=== PATIENT | male | born 1960 | race Hispanic/Latino ===

== ENCOUNTER 2017-01-04 19:18 | Inpatient (IN) | payer MEDICARE ==
[2017-01-04 19:19] VITALS: BMI 19.6
--- NOTE | 2017-01-04 20:56 | ED PDOC ---
HPI: Psych/Substance Abuse Time Seen by Provider: 01/04/17 19:43 Chief Complaint (Nursing): Psychiatric Evaluation Chief Complaint (Provider): Aggressive Behavior History Per: EMS, Other (Half-Way Report) History/Exam Limitations: clinical condition (hx of CVA, oriented x0) Additional Complaint(s): Frank Wilson is a 56 year old male, with a past medical history inclusive of CAD (s/p coronary stent placement) HTN, hypercholesterolemia, hyperlipidemia , COPD, type II diabetes and a recently diagnosed CVA, who presents to the ED on 01/04/17, via EMS and as per the direction of the [facility], for the evaluation of aggressive behavior. HPI and ROS are limited secondary to patient's clinical condition (oriented x0 but awake/alert/able to follow commands). PMD: William Heller Past Medical History Reviewed: Historical Data, Nursing Documentation, Vital Signs Vital Signs: Last Vital Signs Temp 98.2 F 01/04/17 19:23 Pulse 89 01/04/17 19:23 Resp 18 01/04/17 19:23 BP 153/93 H 01/04/17 19:23 Pulse Ox 99 01/04/17 19:23 - Medical History PMH: Anxiety, CAD, COPD, CVA, Depression, HTN, Hypercholesterolemia, TIA Denies: Alzheimer's Disease, Anemia, Arthritis, Asthma, Bipolar Disorder, Bronchitis, Cardia Arrhythmia, CHF, Crohn's Disease, Dementia, Diabetes, Diverticulitis, Emphysema, Fibromyalgia, Fractures, Gastrointestinal Ulcer, Gall Bladder Disease, Hepatitis, HIV, Hyperthyroidism, Hypothyroidism, Kidney Stones, Migraine, Mitral Valve Prolapse, Osteoporosis, Pancreatitis, Paranoia, Parkinson's Disease, Peripheral Edema, Personality Disorder, Pneumonia, Post Traumatic Stress Disorder, Chronic Kidney Disease, Rheumatoid Arthritis, Schizophrenia, Seizures, Sickle Cell Disease, Sexually Transmitted Disease, Sleep Apnea - Surgical History Surgical History: Coronary Stent Denies: Appendectomy, Cholecystectomy, Pacemaker - Family History Family History: States: Unknown Family Hx - Living Arrangements Living Arrangements: Half-Way/Assist [facility] - Immunization History Hx Tetanus Toxoid Vaccination: No Hx Influenza Vaccination: No Hx Pneumococcal Vaccination: No - Home Medications Home Medications: Ambulatory Orders Medication Instructions Recorded Insulin Detemir [Levemir] 5 unit SC 12/26/16 Insulin Human Regular [Novolin R] See Protocol SC ACHS 12/26/16 Acetaminophen [Tylenol 325mg tab] 650 mg PO Q6 PRN 01/05/17 Acetaminophen [Tylenol 325mg tab] 650 mg PO Q6 PRN 01/05/17 Aluminum Hydroxide/Magnesium H 30 ml PO Q4 PRN 01/05/17 [Maalox 30 ml] Folic Acid [Folic Acid] 1 mg PO DAILY 01/05/17 GlipiZIDE [Glucotrol] 10 mg PO DAILY 01/05/17 LORazepam [Ativan] 1 mg PO Q6 PRN 01/05/17 LORazepam [Ativan] 1 mg PO Q8 PRN 01/05/17 Lisinopril [Zestril] 20 mg PO DAILY 01/05/17 Magnesium Hydroxide [Milk Of 30 ml PO HS PRN 01/05/17 Magnesia] Metoprolol Tartrate [Lopressor] 25 mg PO DAILY 01/05/17 Pantoprazole Sodium [Protonix] 40 mg PO DAILY 01/05/17 Polyethylene Glycol 3350 [Glycolax] 17 gm PO DAILY PRN 01/05/17 QUEtiapine [SEROquel] 50 mg PO BID 01/05/17 SITagliptin [Januvia] 100 mg PO DAILY 01/05/17 Thiamine [Vitamin B1 Tab] 100 mg PO DAILY 01/05/17 - Allergies Allergies/Adverse Reactions: Allergies Allergy/AdvReac Type Severity Reaction Status Date / Time No Known Allergies Allergy Verified 03/23/16 14:21 Review of Systems Review Of Systems: ROS cannot be obtained secondary to pt's inabilty to answer questions. Psych: Positive for: Other (aggressive behavior) Physical Exam - Reviewed Nursing Documentation Reviewed: Yes Vital Signs Reviewed: Yes - Physical Exam Appears: Positive for: Non-toxic, No Acute Distress Head Exam: Positive for: ATRAUMATIC, NORMOCEPHALIC Skin: Positive for: Normal Color, Warm, Dry Cardiovascular/Chest: Positive for: Regular Rate, Rhythm. Negative for: Murmur Respiratory: Positive for: Normal Breath Sounds. Negative for: Respiratory Distress Gastrointestinal/Abdominal: Positive for: Normal Exam, Soft. Negative for: Tenderness Extremity: Positive for: Normal ROM (moving all extremities) Neurologic/Psych: Positive for: Alert (awake/alert). Negative for: Oriented (x0 ) - Laboratory Results Result Diagrams: 01/04/17 22:55 01/04/17 22:55 - ECG Interpretation Of ECG: NSR @ 85, TWI inferiolaterally (old compared to 03/23/16). O2 Sat by Pulse Oximetry: 99 (RA) Pulse Ox Interpretation: Normal Medical Decision Making Medical Decision Makin:43 Initial Impression: patient is medically clear for crisis evaluation Initial Plan: * Crisis Evaluation Scribe Attestation: Documented by Dorothea Eden, acting as a scribe for Michell Guevara MD. Provider Scribe Attestation: All medical record entries made by the Scribe were at my direction and personally dictated by me. I have reviewed the chart and agree that the record accurately reflects my personal performance of the history, physical exam, medical decision making, and the department course for this patient. I have also personally directed, reviewed, and agree with the discharge instructions and disposition. ED OBSERVATION Time of observation admission: 20:00 - Observation admission statement Patient is being placed in observation because:: Crisis evaluation Disposition - Clinical Impression Clinical Impression: Adjustment disorder - Patient ED Disposition Is Patient to be Admitted: Transfer of Care - Disposition Disposition Time: 00:00 Condition: STABLE Patient Signed Over To: Nikolai Weaver Handoff Comments: Pending Crisis evaluation.
[2017-01-04] MEDS ORDERED: Sodium Chloride 0.9% 1,000 ML IV STA (22:53)
[2017-01-04 23:46] LABS: BASO % 0.4 % (0.0-2.0); EOS # 0.2 K/uL (0.0-0.7); EOS % 2.2 % (0.0-4.0); LYMPH # 1.3 K/uL (1.0-4.3); LYMPH % 18.4 % (20.0-40.0); MEAN CELL VOLUME 90.1 fl (80.0-94.0); MEAN CORPUSCULAR HEMOGLOBIN 30.9 pg (27.0-31.0); MEAN CORPUSCULAR HGB CONC 34.3 g/dL (33.0-37.0); MEAN PLATELET VOLUME 9.4 fl (7.2-11.7); MONO # 0.7 K/uL (0.0-0.8); MONO % 9.3 % (0.0-10.0); NEUT # 5.1 K/uL (1.8-7.0); NEUT % 69.7 % (50.0-75.0); NRBC % 0.2 % (0.0-0.0); RED CELL DISTRIBUTION WIDTH 13.1 % (11.5-14.5); WHITE BLOOD COUNT 7.3 K/uL (4.8-10.8)
[2017-01-04 23:57] LABS: RBC URINE 2 /hpf (0-3); URINE BACTERIA RARE (<OCC); URINE BILIRUBIN NEGATIVE (NEGATIVE); URINE BLOOD NEGATIVE (NEGATIVE); URINE COLOR STRAW (YELLOW); URINE GLUCOSE (UA) >=500 mg/dL (Normal); URINE KETONE NEGATIVE (NEGATIVE); URINE LEUKOCYTE ESTERASE NEG Leu/uL (Negative); URINE PROTEIN NEGATIVE (NEGATIVE); URINE UROBILINOGEN 0.2-1.0 mg/dL (0.2-1.0); WBC URINE 1 /hpf (0-5)
[2017-01-05 00:01] LABS: ALKALINE PHOSPHATASE 67 U/L (38-126); ALT/SGPT 27 U/L (21-72); AST/SGOT 26 U/L (17-59); BILIRUBIN,TOTAL 0.4 mg/dl (0.2-1.3); BLOOD UREA NITROGEN 26 mg/dl (9-20); CALCIUM 9.6 mg/dL (8.4-10.2); CARBON DIOXIDE 26 mmol/L (22-30); CHLORIDE 99 mmol/L (98-107); GFR AFRICAN-AMERICAN > 60; GLUCOSE,RANDOM 259 mg/dL (75-110); POTASSIUM 4.2 MMOL/L (3.6-5.0); SODIUM 140 mmol/l (132-148); TOTAL PROTEIN 6.9 G/DL (6.3-8.2)
--- NOTE | 2017-01-05 00:12 | ED PDOC ---
- Laboratory Results Result Diagrams: 01/04/17 22:55 01/04/17 22:55 - ECG O2 Sat by Pulse Oximetry: 99 (RA) Medical Decision Making Medical Decision Making: Case endorsed from Dr. Guevara at 0000 pending crisis eval. 0010: Patient was evaluated by crisis and will be admitted to [facility] for adjustment disorder under Dr. Thomas. Scribe Attestation: Documented by Margarita Carlisle acting as a scribe for Nikolai Weaver MD. Provider Scribe Attestation: All medical record entries made by the Scribe were at my direction and personally dictated by me. I have reviewed the chart and agree that the record accurately reflects my personal performance of the history, physical exam, medical decision making, and the department course for this patient. I have also personally directed, reviewed, and agree with the discharge instructions and disposition. Disposition - Clinical Impression Clinical Impression: Adjustment disorder - POA Present On Arrival: None - Disposition Disposition: Admitted as In-Patient Disposition Time: 00:10 Progress Note - Review of Symptoms Events since last encounter: Pt. is medically cleared.
[2017-01-05] MEDS ORDERED: Magnesium Hydroxide Susp 30 ml UD PO PRN ×2 (01:55→01:59)
[2017-01-05] MEDS ORDERED: Alum-Mag Hydrox-Simethicone Susp (30 mL) PO PRN (01:59)
[2017-01-05] MEDS ORDERED: Bismuth Subsalicylate 262 mg/15 ml Sus (240 ml) PO PRN (01:59)
[2017-01-05] MEDS ORDERED: Insulin Regular 100 units/ml SC SCH (07:30)
[2017-01-05 07:31] LABS: IRON 74 ug/dL (49-181); T4 5.14 ug/dl (5.5-11.0)
[2017-01-05 07:45] LABS: THYROID STIMULATING HORMONE 0.57 mIU/ML (0.46-4.68)
--- NOTE | 2017-01-05 08:11 | RAD ---
HISTORY: r/o PNA COMPARISON: No prior. FINDINGS: LUNGS: No active pulmonary disease. PLEURA: No significant pleural effusion identified, no pneumothorax apparent. CARDIOVASCULAR: Normal. OSSEOUS STRUCTURES: No significant abnormalities. VISUALIZED UPPER ABDOMEN: Normal. OTHER FINDINGS: None. IMPRESSION: No active disease.
[2017-01-05] MEDS: Pantoprazole 40 mg EC Tab PO SCH (08:18)
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
[2017-01-05] MEDS ORDERED: DiphenhydrAMINE 50 mg/ml Inj IM PRN (08:38)
[2017-01-05] MEDS ORDERED: POLYETHYLENE GLYCOL 3350 17 GM/Dose PACKET PO PRN (09:00)
[2017-01-05] MEDS ORDERED: Divalproex 250 mg DR(BID formulation) PO SCH (09:00)
[2017-01-05] MEDS: Divalproex 250 mg DR(BID formulation) PO SCH ×2 (10:28→16:38)
[2017-01-05] MEDS ORDERED: Influenza Vaccine(5yr & older) 0.5 ML/45 MCG IM ONE (11:06)
[2017-01-05] MEDS: Insulin Regular 100 units/ml SC SCH ×3 (12:11→22:17)
--- NOTE | 2017-01-05 15:03 | CP.PCM.CON ---
History of Present Illness - History of Present Illness History of Present Illness: Reason for consult per protocol HPI 56 yo male past medical history recent CVA with history of CVA, recent NSTEMI, CAD, DM2, HTN, and ETOH abuse was initially admitted at [facility] because of acute CVA with right sided weakness, AMS and aphasia. He was transferred to acute rehab on 12/26/16 to continue therapy and rehab. Pt was found to have large infarct on left cerebral hemisphere and left subdural hematoma on CT scan. Patient is positive for bilateral ICA stenosis. He was also diagnosed with NSTEMI while in [facility]. Pt had been agitated and was placed on one to one observation prevent injury. Psyche consult was called who recommended Seroquel on daily and prn basis. Upon completion of admission at acute rehabilitation he was accepted at [facility] where he would continue his rehab. Patient arrived to [facility] and was then transferred back to [place] emergency room for agitation and aggressive behavior. He was then readmitted to the psych floor for further observation and care. Review of systems per HPI all other systems reviewed and negative by me PMHx: recent CVA with history of CVA, recent and STEMI, CAD, DM2, HTN, and ETOH abuse PSHx: Cardiac Stent ALL: NKDA Medications: Please see Assessment and Plan below Social Hx: Lives alone, (+) Opiate Abuse, (+) Alcohol Abuse, (+) Tobacco Family Hx: none available Vital signs as documented. Temp Pulse Resp BP Pulse Ox 97.2 F L 78 20 150/88 100 01/05/17 05:31 01/05/17 08:19 01/05/17 05:31 01/05/17 08:19 01/05/17 01:26 Gen: WDWN, cooperative, alert HEENT: NCAT, PERRL, EOMI, no erythema, exudates, gross hearing intact, no lesions Neck: Soft, supple, no lymphadenopathy, no JVD Heart: +S1S2, RRR, No MRG Lung: CTAB, No WRR Abd: soft, NT, ND, BSx4, no HSM, no masses Ext: warm, well perfused, pedal pulses intact Neuro: AAOx3, Strength equal bilaterally UE/LE Skin: Warm, Dry, no rash Psych: Normal mood, affect with appropriate range 01/04/17 22:55 01/04/17 22:55 56 yo male past medical history recent CVA with history of CVA, recent NSTEMI, CAD, DM2, HTN, and ETOH abuse was initially admitted at [facility] because of acute CVA with right sided weakness, AMS and aphasia. He was transferred to acute rehab on 12/26/16 to continue therapy and rehab. Pt was found to have large infarct on left cerebral hemisphere and left subdural hematoma on CT scan. Patient is positive for bilateral ICA stenosis. He was also diagnosed with NSTEMI while in [facility]. Pt had been agitated and was placed on one to one observation prevent injury. Psyche consult was called who recommended Seroquel on daily and prn basis. Upon completion of admission at acute rehabilitation he was accepted at [facility] where he would continue his rehab. Patient arrived to [facility] and was then transferred back to [place] emergency room for agitation and aggressive behavior. He was then readmitted to the psych floor for further observation and care. (1) CVA (cerebral vascular accident) with Left Subdural Hematoma continue PT/OT and Speech therapy hold antiplatelet because of potential risk of bleeding (2) NSTEMI Metoprolol Tartrate 25 mg PO BID Atorvastatin 40 mg PO HS Lisinopril 20 mg PO daily no anticoagulation or anti-platelets because of subdural hematoma (3) DM type 2 (diabetes mellitus, type 2) BS uncontrolled Accuchecks ACHS Januvia 100 mg PO daily Glipizide SR 10mg PO daily Levemir 7 Unit SQ QHS (4) Hypertension BP stable continue Metoprolol, Amlodipine and Lisinopril (5) HLD (hyperlipidemia) continue Atorvastatin (6) Anxiety/Agitation continue 1:1 observation Seroquel 50mg PO q 8hrs prn for agitation Seroquel 50 mg PO BID (7) GERD (gastroesophageal reflux disease) Protonix 40 mg PO daily (8) Alcohol abuse Folic Acid 1 mg PO daily Thiamine 100 mg PO daily watch for alcohol withdrawal Past Patient History - Infectious Disease Hx of Infectious Diseases: None - Tetanus Immunizations Tetanus Immunization: Unknown - Past Social History Smoking Status: Heavy Smoker > 10 Cigarettes Daily - CARDIAC Hx Hypertension: Yes - PULMONARY Hx Chronic Obstructive Pulmonary Disease (COPD): Yes - NEUROLOGICAL Hx Seizures: Yes - HEENT Hx Difficulty Chewing: No - RENAL Hx Chronic Kidney Disease: No - ENDOCRINE/METABOLIC Hx Diabetes Mellitus Type 2: Yes - HEMATOLOGICAL/ONCOLOGICAL Hx Human Immunodeficiency Virus (HIV): No - INTEGUMENTARY Hx Dermatological Problems: No - MUSCULOSKELETAL/RHEUMATOLOGICAL Hx Falls: Yes - GASTROINTESTINAL Hx Gastroesophageal Reflux: Yes - GENITOURINARY/GYNECOLOGICAL Hx Genitourinary Disorders: No - PSYCHIATRIC Hx Depression: Yes Hx Substance Use: Yes - SURGICAL HISTORY Hx Coronary Stent: Yes - ANESTHESIA Hx Anesthesia: Yes Hx Anesthesia Reactions: No Hx Malignant Hyperthermia: No Meds Allergies/Adverse Reactions: Allergies Allergy/AdvReac Type Severity Reaction Status Date / Time No Known Allergies Allergy Verified 03/23/16 14:21 - Medications Medications: Current Medications Acetaminophen (Tylenol 325mg Tab) 650 mg PO Q4 PRN PRN Reason: Pain, moderate (4-7) Al Hydrox/Mg Hydrox/Simethicone (Maalox Plus 30 Ml) 30 ml PO Q4 PRN PRN Reason: Dyspepsia Amlodipine Besylate (Norvasc) 10 mg PO DAILY [facility] Last Admin: 01/05/17 08:17 Dose: 10 mg Atorvastatin Calcium (Lipitor) 40 mg PO HS [facility] Bismuth Subsalicylate (Pepto-Bismol) 524 mg PO Q4 PRN PRN Reason: Diarrhea Diphenhydramine HCl (Benadryl) 50 mg IM Q6 PRN PRN Reason: Agitation Diphenhydramine HCl (Benadryl) 50 mg PO Q6 PRN PRN Reason: Other Divalproex Sodium (Depakote Dr(*Bid*)) 250 mg PO BID [facility] Last Admin: 01/05/17 10:28 Dose: 250 mg Folic Acid (Folic Acid) 1 mg PO DAILY [facility] Last Admin: 01/05/17 08:13 Dose: 1 mg Glipizide (Glucotrol) 10 mg PO DAILY [facility] Last Admin: 01/05/17 08:14 Dose: 10 mg Haloperidol Lactate (Haldol) 2 mg IM Q6 PRN PRN Reason: Agitation Insulin Detemir (Levemir) 5 units SC HS [facility] Insulin Human Regular (Humulin R) 0 units SC ACHS [facility] Last Admin: 01/05/17 12:11 Dose: 4 u Lisinopril (Zestril) 20 mg PO DAILY [facility] Last Admin: 01/05/17 08:19 Dose: 20 mg Magnesium Hydroxide (Milk Of Magnesia) 30 ml PO HS PRN PRN Reason: Constipation Metoprolol Tartrate (Lopressor) 25 mg PO Q12 [facility] Last Admin: 01/05/17 08:17 Dose: 25 mg Pantoprazole Sodium (Protonix Ec Tab) 40 mg PO DAILY [facility] Last Admin: 01/05/17 08:18 Dose: 40 mg Polyethylene Glycol (Miralax) 17 gm PO DAILY PRN PRN Reason: constipation Quetiapine Fumarate (Seroquel) 50 mg PO DAILY [facility] Last Admin: 01/05/17 10:24 Dose: 50 mg Quetiapine Fumarate (Seroquel) 100 mg PO DAILY@1700 [facility] Quetiapine Fumarate (Seroquel) 50 mg PO Q8 PRN PRN Reason: Agitation Sitagliptin Phosphate (Januvia) 100 mg PO DAILY [facility] Last Admin: 01/05/17 08:16 Dose: 100 mg Thiamine HCl (Vitamin B1 Tab) 100 mg PO DAILY [facility] Last Admin: 01/05/17 08:19 Dose: 100 mg Results - Vital Signs Recent Vital Signs: Last Vital Signs Temp 97.2 F L 01/05/17 05:31 Pulse 78 01/05/17 08:19 Resp 20 01/05/17 05:31 BP 150/88 01/05/17 08:19 Pulse Ox 100 01/05/17 01:26 - Labs Result Diagrams: 01/04/17 22:55 01/04/17 22:55 Labs: Laboratory Results - last 24 hr 01/05/17 06:50 Hemoglobin A1c 7.6 H Iron 74 TIBC 240 L % Saturation 31 Ferritin 200.0 Triglycerides 98 Cholesterol 116 LDL Cholesterol Direct 56 HDL Cholesterol 27 L Vitamin B12 525 Free T4 0.81 Thyroxine (T4) 5.14 L TSH 3rd Generation 0.57
[2017-01-05 17:34] LABS: FOLATE 18.6 ng/mL
[2017-01-05] MEDS ORDERED: INSULIN DETEMIR 5 UNIT SC SCH (22:00)
[2017-01-05] MEDS: Insulin Detemir 100 Units/ml Inj SC SCH (22:17)
[2017-01-06] MEDS: Insulin Regular 100 units/ml SC SCH ×5 (08:45→21:23)
[2017-01-06] MEDS: Pantoprazole 40 mg EC Tab PO SCH (08:47)
[2017-01-06] MEDS: Divalproex 250 mg DR(BID formulation) PO SCH ×2 (08:49→17:08)
--- NOTE | 2017-01-06 09:29 | PCM.PYCHPN ---
Psychiatric Progress Note - Psychiatric Progress Note Patient seen today, length of contact: pt seen and evaluated Patient Chief Complaint: pt has remained very irritible asnd easily combative and need to be redirected. DSM 5 Symptoms Update: vascular dementia Medication Change: No Medical Record Reviewed: Yes Mental Status Examination - Cognitive Function Orientation: Person (Unable to assess orientation due to aphasia) Memory: Intact Attention: Poor Concentration: Poor Association: WNL Fund of Knowledge: Poor - Mood Mood: Anxious, Other (Unable to assess due to aphasia, but he denied anxiety and depression) - Affect Affect: Constricted - Formal Thought Process Formal Thought Process: Paranoia, Other (Aphasia, unable to assess) Additional comments: combative at times - Suicidal Ideation Suicidal Ideation: No - Homicidal Ideation Homicidal Ideation: No Goal/Treatment Plan - Goal/Treatment Plan Progress Toward Problem(s) and Goals/Treatment Plan: will continue to titrate up on seroquel and depakote as neeeded to stabilize the pt and maintain pt on 1;1 observation
[2017-01-06] MEDS: Insulin Detemir 100 Units/ml Inj SC SCH (21:24)
[2017-01-07] MEDS: Divalproex 250 mg DR(BID formulation) PO SCH ×2 (08:28→17:06)
[2017-01-07] MEDS: Pantoprazole 40 mg EC Tab PO SCH (08:29)
[2017-01-07] MEDS: Insulin Regular 100 units/ml SC SCH ×4 (08:32→21:08)
--- NOTE | 2017-01-07 12:30 | PCM.PYCHPN ---
Psychiatric Progress Note - Psychiatric Progress Note Patient seen today, length of contact: pt seen and evaluated Patient Chief Complaint: pt has been less irritible and less labile and no aggressive behaviors in past 24 hours Problems Identified/Issues Discussed: pt was admitted for aggressive behaviors. DSM 5 Symptoms Update: pt Medication Change: No Medical Record Reviewed: Yes Mental Status Examination - Cognitive Function Orientation: Person (Unable to assess orientation due to aphasia) Memory: Intact Attention: Poor Concentration: Poor Association: WNL Fund of Knowledge: Poor - Mood Mood: Anxious, Other (Unable to assess due to aphasia, but he denied anxiety and depression) - Affect Affect: Constricted - Formal Thought Process Formal Thought Process: Paranoia, Other (Aphasia, unable to assess) - Suicidal Ideation Suicidal Ideation: No - Homicidal Ideation Homicidal Ideation: No Goal/Treatment Plan - Goal/Treatment Plan Progress Toward Problem(s) and Goals/Treatment Plan: will continue to titrate up on seroquel and depakote as needed to stabilize the pt and maintain pt on 1;1 observation
[2017-01-07] MEDS: Insulin Detemir 100 Units/ml Inj SC SCH (21:11)
[2017-01-08] MEDS: Insulin Regular 100 units/ml SC SCH ×4 (06:30→21:57)
--- NOTE | 2017-01-08 12:30 | PCM.PYCHPN ---
Psychiatric Progress Note - Psychiatric Progress Note Patient seen today, length of contact: Patient evaluated, case discussed with team, chart reviewed Patient Chief Complaint: Patient has aphasia, only able to express simple things Problems Identified/Issues Discussed: Patient was calm and cooperative over the weekend. This morning he was irritable, standing in the hallways, but was able to be redirected without the need of PRN medications. He seems to get frustrated at his inability to communicate with staff due to his aphasia. Diagnostic Results: VPA 30.1 on 01/08/17 Medication Change: No Medical Record Reviewed: Yes Mental Status Examination - Cognitive Function Orientation: Person (Patient unable to state location and date due to aphasia) Memory: Intact Attention: Poor Concentration: Poor Association: WNL Fund of Knowledge: Poor Decription of patient's judgement and insights: I/J limited by vascular dementia s/p CVA - Mood Mood: Other (Unable to assess due to aphasia, but he denied anxiety and depression) - Affect Affect: Constricted - Speech Additional comments: Aphasia, able to say a few simple words - Formal Thought Process Formal Thought Process: Other (Aphasia, unable to assess) Psychotic Thoughts and Behaviors: Says no when asked about hallucinations - Suicidal Ideation Suicidal Ideation: No - Homicidal Ideation Homicidal Ideation: No Goal/Treatment Plan - Goal/Treatment Plan Need for Continued Stay: Remain at risks for inpatient hospitalization, Discharge may exacerbated symptoms Progress Toward Problem(s) and Goals/Treatment Plan: 56 yo male s/p CVA, now with aphasia, sent from [facility] due to agitation and aggression towards others, patient does not recall his episodes of agitation , but has not been violent over the weekend. Plan: -Continue Seroquel and Depakote -Continue 1:1 for safety of self and others -Physical therapy -Routine medicine consult appreciated -Swallow eval -Referral to subacute rehab; case discussed with the patient's sisters Estimated Date of D/C: 01/11/17
[2017-01-08] MEDS: Divalproex 250 mg DR(BID formulation) PO SCH ×3 (12:36→21:12)
[2017-01-08] MEDS: Pantoprazole 40 mg EC Tab PO SCH ×2 (12:37→15:59)
[2017-01-08] MEDS: Insulin Detemir 100 Units/ml Inj SC SCH (22:00)
--- NOTE | 2017-01-09 05:22 | PCM.PYCHPN ---
Psychiatric Progress Note - Psychiatric Progress Note Patient Chief Complaint: Patient has aphasia, only able to express simple things Problems Identified/Issues Discussed: No significant events overnight. Yesterday morning he had a period of irritability, but that resolved without significant events. He seems to get frustrated at his inability to communicate with staff due to his aphasia. He is observed to be sleeping and eating well. When asked about mood (depression/ anxiety) and psychotic symptoms he states no. He is compliant with medications and no adverse effects noted. Diagnostic Results: VPA 30.1 on 01/08/17 Medication Change: No Medical Record Reviewed: Yes Mental Status Examination - Cognitive Function Orientation: Person (Patient unable to state location and date due to aphasia) Memory: Intact Attention: Poor Concentration: Poor Association: WNL Fund of Knowledge: Poor Decription of patient's judgement and insights: Unable to assess insight, but patient has fair judgment at this time - Mood Mood: Other (Unable to assess due to aphasia, but he denied anxiety and depression) - Affect Affect: Constricted - Speech Additional comments: Aphasia, only says a few words - Formal Thought Process Formal Thought Process: Other (Aphasia, unable to assess) Psychotic Thoughts and Behaviors: No internal preoccupation - Suicidal Ideation Suicidal Ideation: No - Homicidal Ideation Homicidal Ideation: No Goal/Treatment Plan - Goal/Treatment Plan Need for Continued Stay: Remain at risks for inpatient hospitalization, Discharge may exacerbated symptoms Progress Toward Problem(s) and Goals/Treatment Plan: 56 yo male s/p CVA, now with aphasia, sent from [facility] due to agitation and aggression towards others, patient does not recall his episodes of agitation , but has not been violent since admission. Plan: -Continue Seroquel and Depakote -Continue 1:1 for safety of self and others -Physical therapy -Routine medicine consult appreciated -Swallow eval -Disposition: Referral to subacute rehab Estimated Date of D/C: 01/11/17
[2017-01-09] MEDS: Pantoprazole 40 mg EC Tab PO SCH (09:09)
[2017-01-09] MEDS: Divalproex 250 mg DR(BID formulation) PO SCH ×2 (09:14→17:49)
[2017-01-09] MEDS: Insulin Regular 100 units/ml SC SCH ×4 (09:18→21:32)
[2017-01-09 16:55] VITALS: O2SAT 99
[2017-01-09] MEDS: Insulin Detemir 100 Units/ml Inj SC SCH (21:34)
[2017-01-10] MEDS: Pantoprazole 40 mg EC Tab PO SCH (08:20)
[2017-01-10] MEDS: Divalproex 250 mg DR(BID formulation) PO SCH ×2 (08:22→16:23)
[2017-01-10] MEDS: Insulin Regular 100 units/ml SC SCH ×4 (08:27→21:27)
--- NOTE | 2017-01-10 09:28 | PCM.PYCHPN ---
Psychiatric Progress Note - Psychiatric Progress Note Patient seen today, length of contact: Patient evaluated, case discussed with team + sister, chart reviewed, 35 Patient Chief Complaint: Patient has aphasia, only able to express simple things Problems Identified/Issues Discussed: No significant events overnight, patient has been calm and cooperative. No periods of irritability/agitation/aggression. He seems to get frustrated at his inability to communicate with staff due to his aphasia, but has been in good behavioral control. He is observed to be sleeping and eating well. When asked about mood (depression/anxiety) and psychotic symptoms he states no. He is compliant with medications and no adverse effects noted. Case discussed with patient's sister, Eden [phone]. She was updated on his current status and medications. Diagnostic Results: VPA 30.1 on 01/08/17 Medication Change: No Medical Record Reviewed: Yes Mental Status Examination - Cognitive Function Orientation: Person (Patient unable to state location and date due to aphasia) Memory: Intact (Unable to fully assess attention, concentration, association, fund of knowledge due to aphasia) Association: WNL Decription of patient's judgement and insights: Unable to fully assess due to aphasia but patient seems to have fair I/J given his good behavioral control - Mood Mood: Other (Unable to assess due to aphasia, but he denied anxiety and depression) - Affect Affect: Constricted - Speech Additional comments: Aphasia - Formal Thought Process Formal Thought Process: Other (Aphasia, unable to assess) Psychotic Thoughts and Behaviors: No AH/VH/paranoia/delusions - Suicidal Ideation Suicidal Ideation: No - Homicidal Ideation Homicidal Ideation: No Goal/Treatment Plan - Goal/Treatment Plan Need for Continued Stay: Remain at risks for inpatient hospitalization, Severe functional impairment Progress Toward Problem(s) and Goals/Treatment Plan: 56 yo male s/p CVA, now with aphasia, sent from [facility] due to agitation and aggression towards others. Patient has not been violent since his admission. He is calm, cooperative and in good behavioral control. Plan: -Continue Seroquel and Depakote -Continue 1:1 for safety of self and others -PT, OT, speech therapy -Routine medicine consult appreciated -Disposition: Referral to subacute rehab Estimated Date of D/C: 01/12/17
[2017-01-10] MEDS: Insulin Detemir 100 Units/ml Inj SC SCH (21:32)
[2017-01-11] MEDS: Insulin Regular 100 units/ml SC SCH ×4 (08:39→21:14)
[2017-01-11] MEDS: Pantoprazole 40 mg EC Tab PO SCH (08:42)
[2017-01-11] MEDS: Divalproex 250 mg DR(BID formulation) PO SCH ×2 (08:42→18:19)
--- NOTE | 2017-01-11 08:55 | PCM.PYCHPN ---
Psychiatric Progress Note - Psychiatric Progress Note Patient seen today, length of contact: Patient evaluated, case discussed with team, chart reviewed, 35 min Patient Chief Complaint: Patient has aphasia, only able to express simple things Problems Identified/Issues Discussed: Patient has been in good behavioral control. No episodes of aggression/ agitation/violence since admission. He has been taken off of 1:1 (which was primarily due to fall risk). Patient continues to participate in speech, physical and occupational therapy. Patient slept well overnight and has been sleeping well. When asked about mood (depression/anxiety) and psychotic symptoms he states no. He is compliant with medications and no adverse effects noted. Diagnostic Results: VPA 30.1 on 01/08/17 DSM 5 Symptoms Update: Adjustment disorder with mixed emotional states; Vascular dementia with behavioral disturbances Medication Change: No Medical Record Reviewed: Yes Consults ordered or reviewed: Medicine, Physical/Occupations/Speech therapy Mental Status Examination - Cognitive Function Orientation: Person (Patient unable to state location and date due to aphasia) Memory: Intact (Unable to fully assess attention, concentration, association, fund of knowledge due to aphasia) Association: WNL Decription of patient's judgement and insights: Unable to fully assess insight/judgment due to aphasia, but patient has been in good behavioral control - Mood Mood: Other (Unable to assess due to aphasia, but he denied anxiety and depression) - Affect Affect: Constricted - Speech Additional comments: Aphasia- patient able to say a few simple words - Formal Thought Process Formal Thought Process: Other (Aphasia, unable to assess) Psychotic Thoughts and Behaviors: Denies AH/VH/paranoia - Suicidal Ideation Suicidal Ideation: No - Homicidal Ideation Homicidal Ideation: No Goal/Treatment Plan - Goal/Treatment Plan Progress Toward Problem(s) and Goals/Treatment Plan: 56 yo male s/p CVA, now with aphasia, sent from [facility] due to agitation and aggression towards others. Patient has not been aggressive/agitated since his admission. He is calm, cooperative and in good behavioral control and compliant with medications. He is currently psychiatrically stable for transfer to subacute rehab. Plan: -Continue Seroquel and Depakote -PT, OT, speech therapy -Routine medicine consult appreciated -Disposition: Referral to subacute rehab Estimated Date of D/C: 01/12/17 - Smoking Cessation Smoking Cessation Initiated: No Reason for not providing: Not indicated
[2017-01-11] MEDS: Insulin Detemir 100 Units/ml Inj SC SCH (21:16)
[2017-01-12] MEDS: Insulin Regular 100 units/ml SC SCH ×4 (06:30→21:16)
--- NOTE | 2017-01-12 07:49 | PCM.PYCHPN ---
Psychiatric Progress Note - Psychiatric Progress Note Patient seen today, length of contact: Patient evaluated, case discussed with team, chart reviewed, 35 min Patient Chief Complaint: Patient has aphasia, only able to express simple things Problems Identified/Issues Discussed: No episodes of aggression/agitation/violence since admission. Patient has been in good behavioral control. No 1:1 needed. Patient continues to participate in speech, physical and occupational therapy. Patient slept well overnight and has been sleeping well. When asked about mood (depression/anxiety ) and psychotic symptoms he states no. He is compliant with medications and no adverse effects noted. Diagnostic Results: VPA 30.1 on 01/08/17 Medication Change: No Medical Record Reviewed: Yes Mental Status Examination - Cognitive Function Orientation: Person (Patient unable to state location and date due to aphasia) Memory: Intact (Unable to fully assess attention, concentration, association, fund of knowledge due to aphasia) Association: WNL Decription of patient's judgement and insights: Unable to fully assess insight/judgment due to aphasia, but patient appears to recognize that he needs treatment as he has been actively engaging in physical therapy and has been in good behavioral control without incident - Mood Mood: Other (Unable to assess due to aphasia, but he denied anxiety and depression) - Affect Affect: Constricted - Speech Additional comments: Aphasia, only able to state a few simple words (s/p CVA) - Formal Thought Process Formal Thought Process: Other (Aphasia, unable to assess) Psychotic Thoughts and Behaviors: States "no" to AH/VH/paranoia - Suicidal Ideation Suicidal Ideation: No - Homicidal Ideation Homicidal Ideation: No Goal/Treatment Plan - Goal/Treatment Plan Progress Toward Problem(s) and Goals/Treatment Plan: 56 yo male s/p CVA, now with aphasia, sent from [facility] due to agitation and aggression towards others. Patient has not been aggressive/agitated since his admission. He is calm, cooperative and in good behavioral control and compliant with medications. He is currently psychiatrically stable for transfer to subacute rehab. Plan: -Continue Seroquel and Depakote -PT, OT, speech therapy -Routine medicine consult appreciated -Disposition: Referral to subacute rehab
[2017-01-12] MEDS: Divalproex 250 mg DR(BID formulation) PO SCH ×2 (08:30→17:43)
[2017-01-12] MEDS: Pantoprazole 40 mg EC Tab PO SCH (08:31)
[2017-01-12] MEDS: Insulin Detemir 100 Units/ml Inj SC SCH (21:16)
[2017-01-13] MEDS: Pantoprazole 40 mg EC Tab PO SCH (08:48)
[2017-01-13] MEDS: Divalproex 250 mg DR(BID formulation) PO SCH ×2 (08:48→16:29)
[2017-01-13] MEDS: Insulin Regular 100 units/ml SC SCH ×4 (09:00→21:12)
--- NOTE | 2017-01-13 12:43 | PCM.PYCHPN ---
Psychiatric Progress Note - Psychiatric Progress Note Patient seen today, length of contact: discussed with team Patient Chief Complaint: no c/o Problems Identified/Issues Discussed: staff reports no overnight events. pt seems mildly irritable but is redirectable. observed in day area eating, watching basketball without any aggression. Medication Change: No Medical Record Reviewed: Yes Mental Status Examination - Cognitive Function Orientation: Person (Patient unable to state location and date due to aphasia) Memory: Intact (Unable to fully assess attention, concentration, association, fund of knowledge due to aphasia) Attention: Poor Concentration: Poor Association: WNL Fund of Knowledge: Poor Decription of patient's judgement and insights: poor - Mood Mood: Other (Unable to assess due to aphasia, but he denied anxiety and depression) - Affect Affect: Constricted - Language Language: Aphasia - Formal Thought Process Formal Thought Process: Other (Aphasia, unable to assess) - Suicidal Ideation Suicidal Ideation: No - Homicidal Ideation Homicidal Ideation: No Goal/Treatment Plan - Goal/Treatment Plan Need for Continued Stay: Remain at risks for inpatient hospitalization, Severe functional impairment Progress Toward Problem(s) and Goals/Treatment Plan: vascular dementia adjustment disorder continue current treatment per primary team. Estimated Date of D/C: 01/12/17
[2017-01-13 17:16] VITALS: RESP 18
[2017-01-13] MEDS: Insulin Detemir 100 Units/ml Inj SC SCH (21:12)
[2017-01-14] MEDS: Pantoprazole 40 mg EC Tab PO SCH (08:22)
[2017-01-14] MEDS: Divalproex 250 mg DR(BID formulation) PO SCH ×2 (08:26→16:03)
[2017-01-14] MEDS: Insulin Regular 100 units/ml SC SCH ×4 (08:27→22:04)
--- NOTE | 2017-01-14 13:00 | PCM.PYCHPN ---
Psychiatric Progress Note - Psychiatric Progress Note Patient seen today, length of contact: discussed with team Patient Chief Complaint: no complaints Problems Identified/Issues Discussed: sno reports of aggression overnight. pt seems mildly irritable but is redirectable. no evidence of medication side effects Medication Change: No Medical Record Reviewed: Yes Mental Status Examination - Cognitive Function Orientation: Person (Patient unable to state location and date due to aphasia) Memory: Intact (Unable to fully assess attention, concentration, association, fund of knowledge due to aphasia) Attention: Poor Concentration: Poor Association: WNL Fund of Knowledge: Poor Decription of patient's judgement and insights: poor - Mood Mood: Other (Unable to assess due to aphasia, but he denied anxiety and depression) - Affect Affect: Constricted - Language Language: Aphasia - Formal Thought Process Formal Thought Process: Other (Aphasia, unable to assess) - Suicidal Ideation Suicidal Ideation: No - Homicidal Ideation Homicidal Ideation: No Goal/Treatment Plan - Goal/Treatment Plan Need for Continued Stay: Remain at risks for inpatient hospitalization, Severe functional impairment Progress Toward Problem(s) and Goals/Treatment Plan: vascular dementia adjustment disorder continue current treatment per primary team. Estimated Date of D/C: 01/12/17
--- NOTE | 2017-01-14 18:15 | CP.PCM.CON ---
History of Present Illness - History of Present Illness History of Present Illness: PODIATRY CONSULT NOTE 59 year old male seen at bedside concerning dry skin and scabs to both lower extremity. Pt denies and acute overnight events. Pt denies recent f/c/n/v/cp/sob Past Patient History - Infectious Disease Hx of Infectious Diseases: None - Tetanus Immunizations Tetanus Immunization: Unknown - Past Social History Smoking Status: Heavy Smoker > 10 Cigarettes Daily - CARDIAC Hx Cardia Arrhythmia: No Hx Congestive Heart Failure: No Hx Hypercholesterolemia: Yes Hx Hypertension: Yes Hx Mitral Valve Prolapse: No Hx Pacemaker: No Hx Peripheral Edema: No - PULMONARY Hx Asthma: No Hx Bronchitis: No Hx Chronic Obstructive Pulmonary Disease (COPD): Yes Hx Emphysema: No Hx Pneumonia: No Hx Sleep Apnea: No - NEUROLOGICAL Hx Alzheimer's Disease: No Hx Dementia: No Hx Migraine: No Hx Parkinson's Disease: No Hx Seizures: No Hx Transient Ischemic Attacks (TIA): Yes - HEENT Hx Difficulty Chewing: No - RENAL Hx Chronic Kidney Disease: No Hx Kidney Stones: No - ENDOCRINE/METABOLIC Hx Hyperthyroidism: No Hx Hypothyroidism: No - HEMATOLOGICAL/ONCOLOGICAL Hx Anemia: No Hx Human Immunodeficiency Virus (HIV): No Hx Sickle Cell Disease: No - INTEGUMENTARY Hx Dermatological Problems: No - MUSCULOSKELETAL/RHEUMATOLOGICAL Hx Arthritis: No Hx Fractures: No Hx Osteoporosis: No Hx Rheumatoid Arthritis: No - GASTROINTESTINAL Hx Crohn's Disease: No Hx Diverticulitis: No Hx Gall Bladder Disease: No Hx Pancreatitis: No - GENITOURINARY/GYNECOLOGICAL Hx Sexually Transmitted Disorders: No - PSYCHIATRIC Hx Anxiety: Yes Hx Bipolar Disorder: No Hx Depression: Yes Hx Paranoia: No Hx Post Traumatic Stress Disorder: No Hx Schizophrenia: No - SURGICAL HISTORY Hx Appendectomy: No Hx Cholecystectomy: No Hx Coronary Stent: Yes - ANESTHESIA Hx Anesthesia: Yes Hx Anesthesia Reactions: No Hx Malignant Hyperthermia: No Meds Allergies/Adverse Reactions: Allergies Allergy/AdvReac Type Severity Reaction Status Date / Time No Known Allergies Allergy Verified 03/23/16 14:21 - Medications Medications: Current Medications Acetaminophen (Tylenol 325mg Tab) 650 mg PO Q4 PRN PRN Reason: Pain, moderate (4-7) Al Hydrox/Mg Hydrox/Simethicone (Maalox Plus 30 Ml) 30 ml PO Q4 PRN PRN Reason: Dyspepsia Amlodipine Besylate (Norvasc) 10 mg PO DAILY [facility] Last Admin: 01/14/17 08:23 Dose: 10 mg Atorvastatin Calcium (Lipitor) 40 mg PO HS [facility] Last Admin: 01/13/17 21:11 Dose: 40 mg Bismuth Subsalicylate (Pepto-Bismol) 524 mg PO Q4 PRN PRN Reason: Diarrhea Diphenhydramine HCl (Benadryl) 50 mg IM Q6 PRN PRN Reason: Agitation Diphenhydramine HCl (Benadryl) 50 mg PO Q6 PRN PRN Reason: Other Last Admin: 01/06/17 03:24 Dose: 50 mg Divalproex Sodium (Depakote Dr(*Bid*)) 250 mg PO BID [facility] Last Admin: 01/14/17 16:03 Dose: 250 mg Folic Acid (Folic Acid) 1 mg PO DAILY [facility] Last Admin: 01/14/17 08:26 Dose: 1 mg Glipizide (Glucotrol) 10 mg PO DAILY [facility] Last Admin: 01/14/17 08:20 Dose: 10 mg Haloperidol Lactate (Haldol) 2 mg IM Q6 PRN PRN Reason: Agitation Insulin Detemir (Levemir) 5 units SC HS [facility] Last Admin: 01/13/17 21:12 Dose: 5 units Insulin Human Regular (Humulin R) 0 units SC [facility] Last Admin: 01/14/17 16:05 Dose: 10 u Lactic Acid (Lac-Hydrin 12% Cream (140 G)) 1 ea TOP DAILY [facility] Lisinopril (Zestril) 20 mg PO DAILY [facility] Last Admin: 01/14/17 08:21 Dose: 20 mg Magnesium Hydroxide (Milk Of Magnesia) 30 ml PO HS PRN PRN Reason: Constipation Metoprolol Tartrate (Lopressor) 25 mg PO Q12 [facility] Last Admin: 01/14/17 08:23 Dose: 25 mg Pantoprazole Sodium (Protonix Ec Tab) 40 mg PO DAILY [facility] Last Admin: 01/14/17 08:22 Dose: 40 mg Polyethylene Glycol (Miralax) 17 gm PO DAILY PRN PRN Reason: constipation Quetiapine Fumarate (Seroquel) 50 mg PO DAILY [facility] Last Admin: 01/14/17 08:20 Dose: 50 mg Quetiapine Fumarate (Seroquel) 100 mg PO DAILY@1700 [facility] Last Admin: 01/14/17 16:03 Dose: 100 mg Quetiapine Fumarate (Seroquel) 50 mg PO Q8 PRN PRN Reason: Agitation Last Admin: 01/07/17 22:39 Dose: 50 mg Sitagliptin Phosphate (Januvia) 100 mg PO DAILY [facility] Last Admin: 01/14/17 08:25 Dose: 100 mg Thiamine HCl (Vitamin B1 Tab) 100 mg PO DAILY [facility] Last Admin: 01/14/17 08:34 Dose: 100 mg Physical Exam - Constitutional Appears: Well, Non-toxic, No Acute Distress - Extremities Exam Additional comments: Lower extremity focused. VASC: PT pulses fully palpable, DP pulse weakly palpable at level of ankle joint bilaterally, graded 2/4 and 1/4 respectively. No edema noted to right lower extremity. Cap refill time to all digits less than 5 seconds. Temperature gradient runs warm to cold proximal to distal. Absent pedal hair growth. DERM: Diffuse xerosis of pedal skin bilaterally, scaling of tissue in weight- bearing plantar areas. No erythema noted. Stable hyperkeratotic lesions with dried hemorrhagic cores noted to dorsal aspects of right foot hallux & 5th digit IPJ an DIPJ respectively. Stable eschars, scabs, and pre-ulcerative macules/patches noted along proximal 1/2 of anterior tibial crests in a linear distribution, bilaterally. NEURO: Protective sensation grossly diminished. MUSCK: Pedal muscle strength graded 5/5 in 4 major pedal muscle groups. - Neurological Exam Neurological exam: Alert, Oriented x3 - Psychiatric Exam Psychiatric exam: Normal Affect, Normal Mood Results - Vital Signs Recent Vital Signs: Last Vital Signs Temp 97.7 F 01/14/17 15:29 Pulse 71 01/14/17 15:29 Resp 18 01/14/17 15:29 BP 135/74 01/14/17 15:29 Pulse Ox 99 01/09/17 16:55 - Labs Result Diagrams: 01/04/17 22:55 01/04/17 22:55 Labs: Laboratory Results - last 24 hr 01/13/17 01/14/17 01/14/17 21:03 06:38 11:21 POC Glucose (mg/dL) 236 H 227 H 333 H 01/14/17 15:30 POC Glucose (mg/dL) 359 H Assessment & Plan - Assessment and Plan (Free Text) Assessment: 56 year old male with PMH of recent NSTEMI, CVA, CAD, DM-2, HTN, and ETOH abuse with 1) Bilateral xerosis secondary to diabetic neuropathy. Plan: Pt evaluated and treated. Chart and vitals reviewed. Discussed with attending Dr. Stoddard. -Prescribed Lac-hydrin 12% cream for use to lower extremities daily. Patient is stable from podiatric standpoint for discharge. Thank you for allowing podiatry service to partake in the care of this patient. - Date & Time Date: 01/14/17 Time: 18:05
[2017-01-14] MEDS: Insulin Detemir 100 Units/ml Inj SC SCH (22:06)
[2017-01-15 05:59] VITALS: BP 118/64; TEMP 98.1
[2017-01-15] MEDS: Insulin Regular 100 units/ml SC SCH ×3 (08:40→17:04)
[2017-01-15] MEDS: Pantoprazole 40 mg EC Tab PO SCH (08:43)
[2017-01-15] MEDS: Divalproex 250 mg DR(BID formulation) PO SCH ×2 (08:44→17:04)
[2017-01-15 08:48] VITALS: PULSE 82
[2017-01-15] MEDS ORDERED: Ammonium Lactate 12% Cream (140 g) TOP SCH (09:00)
--- NOTE | 2017-01-15 09:41 | PCM.PYCHPN ---
Psychiatric Progress Note - Psychiatric Progress Note Patient seen today, length of contact: Patient evaluated, case discussed with team, chart reviewed Patient Chief Complaint: Patient has aphasia, only able to express simple things Problems Identified/Issues Discussed: No episodes of aggression/agitation/violence since admission. No significant events over the weekend. Patient has been in good behavioral control. Patient continues to participate in speech, physical and occupational therapy. Patient slept well overnight and has been sleeping well. When asked about mood ( depression/anxiety) and psychotic symptoms he states no. He is compliant with medications and no adverse effects noted. Diagnostic Results: VPA 30.1 on 01/08/17 Medication Change: No Medical Record Reviewed: Yes Mental Status Examination - Cognitive Function Orientation: Person (Patient unable to state location and date due to aphasia) Memory: Intact (Unable to fully assess attention, concentration, association, fund of knowledge due to aphasia) Attention: Poor Concentration: Poor Association: WNL Fund of Knowledge: Poor Decription of patient's judgement and insights: Patient seems to have fair insight/judgment to continue to cooperative with treatment - Mood Mood: Other (Unable to assess due to aphasia, but he denied anxiety and depression) - Affect Affect: Constricted - Language Language: Aphasia - Formal Thought Process Formal Thought Process: Other (Aphasia, unable to assess) Psychotic Thoughts and Behaviors: No AH/VH/paranoia - Suicidal Ideation Suicidal Ideation: No - Homicidal Ideation Homicidal Ideation: No Goal/Treatment Plan - Goal/Treatment Plan Progress Toward Problem(s) and Goals/Treatment Plan: 56 yo male s/p CVA, now with aphasia, sent from [facility] due to agitation and aggression towards others. Patient has not been aggressive/agitated since his admission. He is calm, cooperative and in good behavioral control and compliant with medications. He is currently psychiatrically stable for transfer to subacute rehab. Plan: -Continue Seroquel and Depakote -PT, OT, speech therapy -Routine medicine consult appreciated -Disposition: Referral to subacute rehab Estimated Date of D/C: 01/17/17
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
== END 2017-01-15 17:30 | DRG 884 ==
LOC: H.ER 19:18 → UNDOADMOB 20:00 → H.ERHOLD 20:00 → OBSVTOIN 01-05 00:09 → H.ERHOLD 01-05 00:09 → H.STEP 01-05 01:42
PROVIDERS: ADMIT Psychiatry & Neurology Psychiatry; ATTEND Psychiatry & Neurology Psychiatry
PROC: GZHZZZZ Group Psychotherapy (ICD-10-PCS; 2017-01-05)
PROC: GZ56ZZZ Individual Psychotherapy, Supportive (ICD-10-PCS; 2017-01-05)
PROC: 3E0234Z Introduction of Serum, Toxoid and Vaccine into Muscle, Percutaneous Approach (ICD-10-PCS; principal; 2017-01-11)
DX: F01.51 Vascular dementia, unspecified severity, with behavioral disturbance (principal); E11.40 Type 2 diabetes mellitus with diabetic neuropathy, unspecified; F43.23 Adjustment disorder with mixed anxiety and depressed mood; E11.65 Type 2 diabetes mellitus with hyperglycemia; L85.3 Xerosis cutis; Z23 Encounter for immunization; E78.00 Pure hypercholesterolemia, unspecified; E78.5 Hyperlipidemia, unspecified; I10 Essential (primary) hypertension; I25.10 Atherosclerotic heart disease of native coronary artery without angina pectoris; Z95.5 Presence of coronary angioplasty implant and graft; I69.320 Aphasia following cerebral infarction; J44.9 Chronic obstructive pulmonary disease, unspecified; K21.9 Gastro-esophageal reflux disease without esophagitis; F17.210 Nicotine dependence, cigarettes, uncomplicated; F10.20 Alcohol dependence, uncomplicated; Y90.9 Presence of alcohol in blood, level not specified